=== PATIENT | male | born 1950 | race Caucasian/White ===

== ENCOUNTER 2020-09-16 12:11 | Emergency (ER) | payer MEDICARE, MEDICAID ==
[~2020-09-16] VITALS: Ht 172.7 cm; Wt 69.4 kg
--- NOTE | 2020-09-16 12:55 | NUR ---
assumed care of pt. pt here for pain to R shoulder and R arm x2 ads. pt denies injury. pt reports that he has chronic back pain upon entering room, pt resting quietly with eyes closed, during assessment, pt very restless and movin around a lot no resp distress. [facility] without difficutly
[2020-09-16] MEDS ORDERED: GABA-827 PO (13:01)
--- NOTE | 2020-09-16 13:55 | NUR ---
no changes. pt resting in position of comfort. no new c/o. no apparent distress. awaiting MD to see
[2020-09-16] MEDS ORDERED: KETOROLAC 30 MG/1 ML IM ONE (14:30)
[2020-09-16] MEDS ORDERED: CYCLOBENZAPRINE 10 MG TABLET PO ONE (14:30)
[2020-09-16] MEDS ORDERED: ACETAMINOPHEN 325 MG TABLET PO ONE (14:30)
--- NOTE | 2020-09-16 15:00 | NUR ---
pt to be medicated. upon entering room, pt sleeping. easily arousable
[2020-09-16] MEDS ORDERED: ACETAMINOPHEN 325 MG TABLET ONE (15:02)
[2020-09-16] MEDS ORDERED: KETOROLAC 30 MG/1 ML ONE (15:03)
[2020-09-16] MEDS ORDERED: CYCLOBENZAPRINE 10 MG TABLET ONE (15:03)
--- NOTE | 2020-09-16 15:26 | NUR ---
EKG has been to bedside
[2020-09-16 15:39] LABS: ANION GAP 6 mmol/L (5-15); CALCIUM 8.3 mg/dL (8.5-10.1); CHLORIDE 109 mmol/L (98-107); CREATININE 1.04 mg/dL (0.7-1.3)
[2020-09-16 15:43] LABS: CREATINE KINASE, TOTAL 777 U/L (39-308); TROPONIN I < 0.015 ng/mL (0.000-0.045)
[2020-09-16 15:44] LABS: BASOPHILS % (AUTO) 1 % (0-1); EOSINOPHILS % (AUTO) 7 % (1-7); LYMPHOCYTES % (AUTO) 47 % (22-44); MEAN CORPUSCULAR HEMOGLOBIN 32.7 pg (27.5-34.5); MEAN CORPUSCULAR HGB CONC 33.6 g/dL (33.2-36.2); MEAN PLATELET VOLUME 9.2 fL (7.4-10.4); MONOCYTES % (AUTO) 8 % (2-9); NEUTROPHILS % (AUTO) 38 % (42-75); PLATELET COUNT 205 x10^3/uL (130-400); RED BLOOD COUNT 4.31 x10^6/uL (4.38-5.82); RED CELL DISTRIBUTION WIDTH 13.6 % (9.4-14.8)
[2020-09-16 15:51] LABS: MD NO
[2020-09-16 16:34] VITALS: BP 127/77
--- NOTE | 2020-09-16 16:35 | NUR ---
Patient/Caregiver given discharge instructions and they have confirmed that they understand the instructions. Patient ambulatory with steady gait.
--- NOTE | 2020-09-16 16:41 | NUR ---
this pt has been D/C by another RN
== END 2020-09-16 16:36 | disposition home or self-care (01) ==
LOC: ED 15:30
DX: M25.511 Pain in right shoulder (principal); M79.631 Pain in right forearm; R94.31 Abnormal electrocardiogram [ECG] [EKG]
CPT/HCPCS: 36415; 80048; 82550; 84484; 85025; 93005; 96372; 99284; J1885